=== PATIENT | female | born 1965 ===

== ENCOUNTER 2020-12-16 08:11 | Outpatient (REF) | payer BC, SELFPAY ==
[2020-12-16 14:33] LABS: ALT 35 U/L (14-59); AST 19 U/L (15-37); Albumin 3.7 g/dL (3.4-5.0); Alkaline Phosphatase 62 U/L (46-116); Anion Gap 9.5 mmol/L (3-11); BUN 19 mg/dL (7-18); Bilirubin, Total 0.4 mg/dL (0.2-1.0); CO2 28.5 mmol/L (21.0-32.0); CREATININE 0.8 mg/dL (0.55-1.02); Calcium 8.8 mg/dL (8.5-10.1); Calculated LDL 130 mg/dL (<100); Chloride 105 mmol/L (98-107); Cholesterol 212 mg/dL (<200); Glucose 140 mg/dL (74-106); HDL Cholesterol 61 mg/dL (40-60); Potassium 4.1 mmol/L (3.5-5.1); Sodium 143 mmol/L (136-145); Total Protein 7.2 g/dL (6.4-8.2); Triglyceride 108 mg/dL (<150)
== END 2020-12-16 08:12 | disposition home or self-care (01) ==
LOC: NCHCN 08:11
PROVIDERS: PCP Family Medicine; Visit Provider Internal Medicine
DX: R73.9 Hyperglycemia, unspecified (principal); E66.9 Obesity, unspecified
CPT/HCPCS: 80053; 80061; 83036

== ENCOUNTER 2021-07-23 16:12 | Outpatient (REF) | payer BC, SELFPAY ==
[2021-07-23 15:11] LABS: Calculated LDL 93 mg/dL (<100); Cholesterol 174 mg/dL (<200); HDL Cholesterol 66 mg/dL (40-60); Triglyceride 79 mg/dL (<150)
[2021-07-23 15:14] LABS: Hemoglobin A1C 6.9 % (<5.7)
[2021-07-23 15:59] LABS: COMMENT (LAB VIEW ONLY) 89.15 mg/dL
[2021-07-23 16:04] LABS: Microalb ug/mg Crea 9.6 ug/mg Cr
== END 2021-07-23 16:13 | disposition home or self-care (01) ==
LOC: NCHCN 16:12
PROVIDERS: PCP Family Medicine; Visit Provider Internal Medicine
DX: E11.9 Type 2 diabetes mellitus without complications (principal); E78.5 Hyperlipidemia, unspecified
CPT/HCPCS: 80061; 82043; 82570; 83036

== ENCOUNTER 2021-11-18 18:38 | Outpatient (REF) | payer BC, SELFPAY ==
[2021-11-18 14:57] LABS: ALT 20 U/L (14-59); AST 14 U/L (15-37); Alkaline Phosphatase 70 U/L (46-116); Anion Gap 8.2 mmol/L (3-11); BUN 17 mg/dL (7-18); Bilirubin, Total 0.3 mg/dL (0.2-1.0); CO2 27.8 mmol/L (21.0-32.0); CREATININE 0.8 mg/dL (0.55-1.02); Calcium 8.9 mg/dL (8.5-10.1); Chloride 107 mmol/L (98-107); Glucose 122 mg/dL (74-106); Lipase 72 U/L (73-393); Potassium 5.2 mmol/L (3.5-5.1); Sodium 143 mmol/L (136-145); Total Protein 7.6 g/dL (6.4-8.2)
[2021-11-18 15:03] LABS: Abs Immature Grans 0.02 10^3/uL (0.0-0.06); Absolute Basophil Count 0.09 10^3/uL (0.0-0.2); Absolute Eosinophil Count 0.24 10^3/uL (0.0-0.7); Absolute Lymphocyte Count 2.71 10^3/uL (1.2-3.4); Absolute Monocyte Count 0.53 10^3/uL (0.1-0.8); Absolute Neutrophil Count 4.11 10^3/uL (1.2-6.7); Basophils % 1.2; Eosinophils % 3.1; HCT 40.8 % (36.0-46.0); HGB 12.7 g/dL (11.2-15.7); Immature Grans % 0.3; Lymphocytes % 35.2; MCH 26.9 pg (27.0-33.0); MCHC 31.1 % (32.0-36.0); MCV 86.4 fL (80-95); MPV 9.8 fL (8.0-11.0); Monocytes % 6.9; Neutrophils % 53.3; Nucleated RBC 0 %; Platelet Count 411 10^3/uL (130-400); RBC 4.72 10^6/uL (3.93-5.22); RDW 13.7 % (11.7-14.6); RDW-SD 42.9 fL
== END 2021-11-18 18:39 | disposition home or self-care (01) ==
LOC: NCHCN 18:38
PROVIDERS: PCP Family Medicine; Visit Provider Nurse Practitioner Family
DX: R10.12 Left upper quadrant pain (principal)
CPT/HCPCS: 80053; 83690; 85025

== ENCOUNTER 2022-04-03 13:09 | Outpatient (REF) | payer BC, SELFPAY ==
--- NOTE | 2022-04-03 08:45 | PAPFT_PTH ---
PATIENT: Lisa Mercado LOC: [facility] U#:[id number] AGE/SX: 56/F ROOM: RE04/03/[address]: Tisha Wang : 1965 BED: DIS: 04/03/2022 SPEC #: [id number] RECD: 04/03/22 17:27 STATUS: KAREN SEAMAN #: [id number] MONICA: 04/03/22 08:[address]: Tisha Wang DEPT: [facility] Cytology RECD BY: Criss Gonzalez ENTERED: 04/03/22 17:27 SP TYPE: PAPFT OTHR DR: Brad Haider Tissues: 1 - CX/ENDOCX FOR PAP SMEARS Procedures: PAP THIN PREP/UVM Screening HPV DNA PROBE Comments: [id number] (CHLAMYDIA/GC)
[2022-04-06 14:53] LABS: Chlamydia Result Negative (Negative); GC Result Negative (Negative)
== END 2022-04-03 13:10 | disposition home or self-care (01) ==
LOC: NCHCN 13:09
PROVIDERS: PCP Family Medicine; Visit Provider Nurse Practitioner Family
DX: Z12.4 Encounter for screening for malignant neoplasm of cervix (principal); Z11.51 Encounter for screening for human papillomavirus (HPV)
CPT/HCPCS: 87491; 87591; 88142; 87624

== ENCOUNTER 2023-04-05 20:56 | Outpatient (REF) | payer BC, SELFPAY ==
[2023-04-05 22:05] LABS: COMMENT (LAB VIEW ONLY) 40.55 mg/dL
[2023-04-05 22:06] LABS: Microalb ug/mg Crea 496.4 ug/mg Cr
== END 2023-04-05 20:57 | disposition home or self-care (01) ==
LOC: NCHCN 20:56
PROVIDERS: PCP Family Medicine; Visit Provider Internal Medicine
DX: E11.9 Type 2 diabetes mellitus without complications (principal)
CPT/HCPCS: 82043; 82570

== ENCOUNTER 2023-11-12 14:58 | Outpatient (REF) | payer BC, SELFPAY ==
[2023-11-12 14:28] LABS: HCT 41.9 % (36.0-46.0); HGB 13.7 g/dL (11.2-15.7); MCHC 32.7 % (32.0-36.0); MCV 83 fL (80-95); MPV 9.5 fL (8.0-11.0); Platelet Count 426 10^3/uL (130-400); RBC 5.08 10^6/uL (3.93-5.22); RDW 13.9 % (11.7-14.6); RDW-SD 41.5 fL; WBC 6.44 10^3/uL (4.4-10.8)
[2023-11-12 14:40] LABS: Anion Gap 10.2 mmol/L (3-11); BUN 16 mg/dL (7-18); CO2 26.8 mmol/L (21.0-32.0); CREATININE 0.9 mg/dL (0.55-1.02); Calculated LDL 86 mg/dL (<100); Chloride 103 mmol/L (98-107); Cholesterol 169 mg/dL (<200); Estimated GFR 73.64 (mL/min/1.73m2); Glucose 136 mg/dL (74-106); HDL Cholesterol 59 mg/dL (40-60); Potassium 4.8 mmol/L (3.5-5.1); Sodium 140 mmol/L (136-145); Triglyceride 121 mg/dL (<150)
[2023-11-12 14:50] LABS: Hemoglobin A1C 6.3 % (<5.7)
== END 2023-11-12 14:59 | disposition home or self-care (01) ==
LOC: NCHCN 14:58
PROVIDERS: PCP Family Medicine; Referring Provider Nurse Practitioner Family; Visit Provider Nurse Practitioner Family
DX: E11.9 Type 2 diabetes mellitus without complications (principal)
CPT/HCPCS: 80048; 80061; 85027; 83036

== ENCOUNTER 2024-02-22 15:23 | Outpatient (REF) | payer BC, SELFPAY ==
--- OUTSIDE RECORDS SUMMARY | 2024-02-22 15:26 | XMS_ITS ---
Author Name Unknown Address [address] [place] [address] [phone] Phone Organization Unknown Address [address] [place] [address] [phone] Phone Care Team Providers Care Physics And Astronomy Professor Name Role Phone GREGORY Eli Attending Unavailable ROMULO Guaman Primary Unavailable Results BUN/CREATININE RATIO FOR RAD IOLOGY* - Collect Date/Time: 12/03/2021 10:10 [facility] ID: [id number] [address] [place] [address], 5661 LOINC: 3097-3 Test Value Unit Reference Range Code Code System Flag BUN 6 mg/dL L=6 H=25 3094-0 LOINC CREATININE 0.83 mg/dL L=0.51 H=0.95 2160-0 LOINC BUN/CREATININE RATIO 7.2 3097-3 LOINC AGE 56 years eGFR (non-Afr.Amer) 71 mL/min 10983-2 LOINC eGFR (Afr-Azerbaijani) 86 mL/min 05692-[address] ABD + PELV W CONTRAST - C ompleted: 12/03/2021 10:04 LOINC: Radiation optimization: All CT scans at this facility use at least one of these dose optimization techniques: automated exposure control; mA and/or kV adjustment per patient size (includes targeted exams where dose is matched to clinical indication); or iterative reconstruction. CT SCAN OF THE ABDOMEN AND PELVIS:CT scan of the abdomen and pelvis was performed following the uneventful administration of intravenous and oral contrast material. Comparison CT scan is 11/12/09. The lung bases are clear. There is no evidence of a hepatic mass. The portal, superior mesenteric and splenic veins are patent. The patient is s/p cholecystectomy. There is no biliary ductal dilatation. The pancreas, spleen and adrenal glands are unremarkable. The kidneys and ureters are unremarkable. The patient has a reconstructed urinary bladder which is unremarkable. It is incompletely distended limiting evaluation. The reproductive organs are unremarkable. The abdominal aorta is of normal caliber. No significant abdominal or pelvic adenopathy, ascites or pneumoperitoneum is present. The bowel shows no evidence of obstruction or inflammation. The soft tissues are unremarkable. No acute osseous abnormality is identified. IMPRESSION:No acute abdominal or pelvic process. Dictated by: LILLIANA EDWARD MD Transcribed by: DERRICK 12/03/21/13:20 D Friday, December 03, 2021 11:46:34 AM [id number] Electronically Reviewed and Signed By: CARMEN EDWARD MD 12/03/21 14:47 Copy for: GREGORY Eli via fax Copy for: ROMULO Guaman via fax Copy for: 185 HEALTH INFORMATION MGMT Social History Type Status Start Date End Date Code Code Syst em Smoking History Never smoker (Never Smoked) 473102838 SNOMED CT Sex Female Medications Medication Start Date End Date Route Frequency Dose Code Code System Medication Instructions Home Meds Acetaminophen 325MG Oral Tablet 10/21/2022 Unknown ORAL NEEDED EVERY 4 HOURS 650 MILLIGRAMS 226027 RxNorm TAKE 650 MILLIGRAMS ORAL NEEDED EVERY 4 HOURS Atorvastatin Calcium 20MG Oral Tablet 10/21/2022 Unknown ORAL BEDTIME 20 MILLIGRAMS 624281 RxNorm TAKE 20 MILLIGRAMS ORAL BEDTIME Omeprazole 20 MG Oral Tablet Disintegrating, Delayed Release 10/21/2022 Unknown ORAL DAILY 20 MG 7818625 RxNorm TAKE 20 MG ORAL DAILY metFORMIN HCl 500MG Oral Tablet 10/21/2022 Unknown ORAL TWICE A DAY WITH FOOD 500 MILLIGRAMS 632073 RxNorm TAKE 500 MILLIGRAMS ORAL TWICE A DAY WITH FOOD Cephalexin 500MG Oral Tablet 10/21/2022 Unknown ORAL FOUR TIMES A DAY 1 TABLET 889739 RxNorm TAKE 1 TABLET ORAL FOUR TIMES A DAY Assessment You had the following problems:PYELONEPHRITISHISTORY OF TOTAL CYSTECTOMYTYPE 2 DIABETES Hospital Discharge Instructions Should you have any questions prior to discharge, please contact a member of your healthcare team. If you have left the hospital and have any questions, please contact your primary care physician. Reason For Referral No Data Found Problems Problem Start Date Resolved Date Status Code Code System PYELONEPHRITIS active 40965669 SNOME D-CT HISTORY OF TOTAL CYSTECTOMY active 44 4417014 SNOMED-CT TYPE 2 DIABETES active 79373135 SNOM ED-CT DIABETES 2 10/19/2022 resolved 52063183 SNOMED-C T ULCER 10/19/2022 resolved 634036603 SNOMED-CT URINARY DIVERSTION 10/19/2022 resolved SNOMED-CT INTERNAL BLADDER 10/19/2022 resolved SN OMED-CT Allergies and Adverse Reactions Allergy Substance Reaction Severity Start Date Concern Status Code Code System SULFA (sulfonamide) Anaphylaxis (SNOMED-CT: 22174596) Active 44444761 SNOMED-CT Plan of Treatment MM SCREEN BILAT 02/17/2024 LAB DRAW 15MIN 12/03/2021 CT ABDOMEN/PELVIS W/ CONTRAST X-RAY 11/25/2021 X-RAY 11/19/2021 Encounters Encounter Diagnosis Start Date Code Code Sys tem Retention of urine 12/03/2021 632692354 SNOMED-CT Personal Care Team Section Performer Name Performer Role Active Date Inactive Da te
--- OUTSIDE RECORDS SUMMARY | 2024-02-22 15:26 | XMS_ITS ---
Author Name Unknown Address [address] [place] [address] [phone] Phone Organization Unknown Address [address] [place] [address] [phone] Phone Care Team Providers Care Buzzle Buffer Name Role Phone JERILYN Carey Attending Unavailable Social History Type Status Start Date End Date Code Code Syst em Smoking History Never smoker (Never Smoked) 943659960 SNOMED CT Sex Female Medications Medication Start Date End Date Route Frequency Dose Code Code System Medication Instructions Home Meds Acetaminophen 325MG Oral Tablet 10/21/2022 Unknown ORAL NEEDED EVERY 4 HOURS 650 MILLIGRAMS 843718 RxNorm TAKE 650 MILLIGRAMS ORAL NEEDED EVERY 4 HOURS Atorvastatin Calcium 20MG Oral Tablet 10/21/2022 Unknown ORAL BEDTIME 20 MILLIGRAMS 019721 RxNorm TAKE 20 MILLIGRAMS ORAL BEDTIME Omeprazole 20 MG Oral Tablet Disintegrating, Delayed Release 10/21/2022 Unknown ORAL DAILY 20 MG 3846433 RxNorm TAKE 20 MG ORAL DAILY metFORMIN HCl 500MG Oral Tablet 10/21/2022 Unknown ORAL TWICE A DAY WITH FOOD 500 MILLIGRAMS 913359 RxNorm TAKE 500 MILLIGRAMS ORAL TWICE A DAY WITH FOOD Cephalexin 500MG Oral Tablet 10/21/2022 Unknown ORAL FOUR TIMES A DAY 1 TABLET 513649 RxNorm TAKE 1 TABLET ORAL FOUR TIMES A DAY Assessment You had the following problems:PYELONEPHRITISHISTORY OF TOTAL CYSTECTOMYTYPE 2 DIABETES Hospital Discharge Instructions Should you have any questions prior to discharge, please contact a member of your healthcare team. If you have left the hospital and have any questions, please contact your primary care physician. Reason For Referral No Data Found Procedures Procedure Name Date Status Code Code Syste m ECG, Transthoracic, Real-Luis e 2D Image, M-Mode Recording, Complete, With Doppler Echocardiography 11/10/2021 completed 46077 CPT Problems Problem Start Date Resolved Date Status Code Code System PYELONEPHRITIS active 82834875 SNOME D-CT HISTORY OF TOTAL CYSTECTOMY active 44 6237014 SNOMED-CT TYPE 2 DIABETES active 97352113 SNOM ED-CT DIABETES 2 10/19/2022 resolved 96155444 SNOMED-C T ULCER 10/19/2022 resolved 063421931 SNOMED-CT URINARY DIVERSTION 10/19/2022 resolved SNOMED-CT INTERNAL BLADDER 10/19/2022 resolved SN OMED-CT Allergies and Adverse Reactions Allergy Substance Reaction Severity Start Date Concern Status Code Code System SULFA (sulfonamide) Anaphylaxis (SNOMED-CT: 86018972) Active 71369111 SNOMED-CT Plan of Treatment MM SCREEN BILAT 02/17/2024 LAB DRAW 15MIN 12/03/2021 CT ABDOMEN/PELVIS W/ CONTRAST X-RAY 11/25/2021 X-RAY 11/19/2021 Encounters Encounter Diagnosis Start Date Code Code Sys tem Nonrheumatic mitral (valve) insufficiency 11/10/2021 SNOMED-CT Personal Care Team Section Performer Name Performer Role Active Date Inactive Da te
--- OUTSIDE RECORDS SUMMARY | 2024-02-22 15:26 | XMS_ITS ---
Author Name Unknown Address [address] [place] [address] [phone] Phone Organization Unknown Address [address] [place] [address] [phone] Phone Care Team Providers Care Baggage Agent Supervisor Name Role Phone ROMULO Guaman Attending Unavailable Results XR EXAM ABDOMEN 1 VIEW - Com pleted: 11/26/2021 18:43 LOINC: KUB, 3 VIEWS: Comparison CT scan is 11/12/2009. The visualized lung bases are clear. There is no evidence of bowel obstruction. There is a moderate amount of stool throughout the colon. No obvious pneumoperitoneum is seen. There are surgical clips in the right lower quadrant of the abdomen and the right pelvis. No acute bone or joint abnormality is identified. IMPRESSION: No acute abdominal process. Dictated by: LILLIANA EDWARD MD Transcribed by: DIONNE 11/26/21/16:18 [id number] Electronically Reviewed and Signed By: CARMEN EDWARD MD 11/27/21 21:08 Copy for: ROMULO Guaman via fax Copy for: [facility] HEALTH INFORMATION MGMT Social History Type Status Start Date End Date Code Code Syst em Smoking History Never smoker (Never Smoked) 547149488 SNOMED CT Sex Female Medications Medication Start Date End Date Route Frequency Dose Code Code System Medication Instructions Home Meds Acetaminophen 325MG Oral Tablet 10/21/2022 Unknown ORAL NEEDED EVERY 4 HOURS 650 MILLIGRAMS 198301 RxNorm TAKE 650 MILLIGRAMS ORAL NEEDED EVERY 4 HOURS Atorvastatin Calcium 20MG Oral Tablet 10/21/2022 Unknown ORAL BEDTIME 20 MILLIGRAMS 168803 RxNorm TAKE 20 MILLIGRAMS ORAL BEDTIME Omeprazole 20 MG Oral Tablet Disintegrating, Delayed Release 10/21/2022 Unknown ORAL DAILY 20 MG 8058778 RxNorm TAKE 20 MG ORAL DAILY metFORMIN HCl 500MG Oral Tablet 10/21/2022 Unknown ORAL TWICE A DAY WITH FOOD 500 MILLIGRAMS 406159 RxNorm TAKE 500 MILLIGRAMS ORAL TWICE A DAY WITH FOOD Cephalexin 500MG Oral Tablet 10/21/2022 Unknown ORAL FOUR TIMES A DAY 1 TABLET 116188 RxNorm TAKE 1 TABLET ORAL FOUR TIMES [...] Date Status Code Code System PYELONEPHRITIS active 97812730 SNOME D-CT HISTORY OF TOTAL CYSTECTOMY active 44 1141514 SNOMED-CT TYPE 2 DIABETES active 19263594 SNOM ED-CT DIABETES 2 10/19/2022 resolved 37219450 SNOMED-C T ULCER 10/19/2022 resolved 262400281 SNOMED-CT URINARY DIVERSTION 10/19/2022 resolved SNOMED-CT INTERNAL BLADDER 10/19/2022 resolved SN OMED-CT Allergies and Adverse Reactions Allergy Substance Reaction Severity Start Date Concern Status Code Code System SULFA (sulfonamide) Anaphylaxis (SNOMED-CT: 80073520) Active 67292949 SNOMED-CT Plan of Treatment MM SCREEN BILAT 02/17/2024 LAB DRAW 15MIN 12/03/2021 CT ABDOMEN/PELVIS W/ CONTRAST X-RAY 11/25/2021 X-RAY 11/19/2021 Encounters Encounter Diagnosis Start Date Code Code Sys tem Left upper quadrant pain 11/26/2021 141974829 SNO MED-CT Personal Care Team Section Performer Name Performer Role Active Date Inactive Da te
--- OUTSIDE RECORDS SUMMARY | 2024-02-22 15:27 | XMS_ITS ---
Author Name Unknown Address [address] [place] [address] [phone] Phone Organization Unknown Address [address] [place] [address] [phone] Phone Care Team Providers Care Right Of Way Man Name Role Phone MARY Han Attending Unavailable Social History Type Status Start Date End Date Code Code Syst em Smoking History Never smoker (Never Smoked) 253487291 SNOMED CT Sex Female Medications Medication Start Date End Date Route Frequency Dose Code Code System Medication Instructions Home Meds Acetaminophen 325MG Oral Tablet 10/21/2022 Unknown ORAL NEEDED EVERY 4 HOURS 650 MILLIGRAMS 863019 RxNorm TAKE 650 MILLIGRAMS ORAL NEEDED EVERY 4 HOURS Atorvastatin Calcium 20MG Oral Tablet 10/21/2022 Unknown ORAL BEDTIME 20 MILLIGRAMS 097714 RxNorm TAKE 20 MILLIGRAMS ORAL BEDTIME Omeprazole 20 MG Oral Tablet Disintegrating, Delayed Release 10/21/2022 Unknown ORAL DAILY 20 MG 2798603 RxNorm TAKE 20 MG ORAL DAILY metFORMIN HCl 500MG Oral Tablet 10/21/2022 Unknown ORAL TWICE A DAY WITH FOOD 500 MILLIGRAMS 617379 RxNorm TAKE 500 MILLIGRAMS ORAL TWICE A DAY WITH FOOD Cephalexin 500MG Oral Tablet 10/21/2022 Unknown ORAL FOUR TIMES A DAY 1 TABLET 680608 RxNorm TAKE 1 TABLET ORAL FOUR TIMES [...] Date Status Code Code System PYELONEPHRITIS active 25931899 SNOME D-CT HISTORY OF TOTAL CYSTECTOMY active 44 5860000 SNOMED-CT TYPE 2 DIABETES active 19067691 SNOM ED-CT DIABETES 2 10/19/2022 resolved 41369686 SNOMED-C T ULCER 10/19/2022 resolved 234692743 SNOMED-CT URINARY DIVERSTION 10/19/2022 resolved SNOMED-CT INTERNAL BLADDER 10/19/2022 resolved SN OMED-CT Allergies and Adverse Reactions Allergy Substance Reaction Severity Start Date Concern Status Code Code System SULFA (sulfonamide) Anaphylaxis (SNOMED-CT: 15061303) Active 89981224 SNOMED-CT Plan of Treatment MM SCREEN BILAT 02/17/2024 LAB DRAW 15MIN 12/03/2021 CT ABDOMEN/PELVIS W/ CONTRAST X-RAY 11/25/2021 X-RAY 11/19/2021 Encounters Encounter Diagnosis Start Date Code Code Sys tem Tubulo-interstitial nephriti s, not specified as acute or chronic 10/19/2022 SNOMED-CT Personal Care Team Section Performer Name Performer Role Active Date Inactive Nasir hinojosa
--- OUTSIDE RECORDS SUMMARY | 2024-02-22 15:27 | XMS_ITS ---
Author Name Unknown Address [address] [place] [address] [phone] Phone Organization Unknown Address [address] [place] [address] [phone] Phone Care Team Providers Care Employment Educational Coord Name Role Phone GREGORY Eli Attending Unavailable ROMULO Guaman Primary Unavailable Results CULT URINE CULTURE* - Virgilio wu Date/Time: 03/16/2023 15:59 [facility] ID: [id number] [address] [place], [place], [id number] LOINC: 630-4 Test Value Unit Reference Range Code Code System Flag COLLECTION MODE: NOT STATED 47121-9 LOINC Social History Type Status Start Date End Date Code Code Syst em Smoking History Never smoker (Never Smoked) 220788408 SNOMED CT Sex Female Medications Medication Start Date End Date Route Frequency Dose Code Code System Medication Instructions Home Meds Acetaminophen 325MG Oral Tablet 10/21/2022 Unknown ORAL NEEDED EVERY 4 HOURS 650 MILLIGRAMS 872725 RxNorm TAKE 650 MILLIGRAMS ORAL NEEDED EVERY 4 HOURS Atorvastatin Calcium 20MG Oral Tablet 10/21/2022 Unknown ORAL BEDTIME 20 MILLIGRAMS 411811 RxNorm TAKE 20 MILLIGRAMS ORAL BEDTIME Omeprazole 20 MG Oral Tablet Disintegrating, Delayed Release 10/21/2022 Unknown ORAL DAILY 20 MG 0806620 RxNorm TAKE 20 MG ORAL DAILY metFORMIN HCl 500MG Oral Tablet 10/21/2022 Unknown ORAL TWICE A DAY WITH FOOD 500 MILLIGRAMS 822630 RxNorm TAKE 500 MILLIGRAMS ORAL TWICE A DAY WITH FOOD Cephalexin 500MG Oral Tablet 10/21/2022 Unknown ORAL FOUR TIMES A DAY 1 TABLET 761512 RxNorm TAKE 1 TABLET ORAL FOUR TIMES [...] Date Status Code Code System PYELONEPHRITIS active 45934219 SNOME D-CT HISTORY OF TOTAL CYSTECTOMY active 44 0504257 SNOMED-CT TYPE 2 DIABETES active 85127750 SNOM ED-CT DIABETES 2 10/19/2022 resolved 53587684 SNOMED-C T ULCER 10/19/2022 resolved 702179528 SNOMED-CT URINARY DIVERSTION 10/19/2022 resolved SNOMED-CT INTERNAL BLADDER 10/19/2022 resolved SN OMED-CT Allergies and Adverse Reactions Allergy Substance Reaction Severity Start Date Concern Status Code Code System SULFA (sulfonamide) Anaphylaxis (SNOMED-CT: 72840926) Active 01687770 SNOMED-CT Plan of Treatment MM SCREEN BILAT 02/17/2024 LAB DRAW 15MIN 12/03/2021 CT ABDOMEN/PELVIS W/ CONTRAST X-RAY 11/25/2021 X-RAY 11/19/2021 Encounters Encounter Diagnosis Start Date Code Code Sys tem Dysuria 03/16/2023 80894676 SNOMED-CT Personal Care Team Section Performer Name Performer Role Active Date Inactive Da te
--- OUTSIDE RECORDS SUMMARY | 2024-02-22 15:28 | XMS_ITS ---
Author Name Unknown Address [address] [place] [address] [phone] Phone Organization Unknown Address [address] [place] [address] [phone] Phone Care Team Providers Care Instrumentation Designer Name Role Phone JERILYN Carey MD Attending Unavailable [facility] Primary Unavailable Social History Type Status Start Date End Date Code Code Syst em Smoking History Never smoker (Never Smoked) 887079030 SNOMED CT Sex Female Medications Medication Start Date End Date Route Frequency Dose Code Code System Medication Instructions Home Meds Acetaminophen 325MG Oral Tablet 10/21/2022 Unknown ORAL NEEDED EVERY 4 HOURS 650 MILLIGRAMS 699132 RxNorm TAKE 650 MILLIGRAMS ORAL NEEDED EVERY 4 HOURS Atorvastatin Calcium 20MG Oral Tablet 10/21/2022 Unknown ORAL BEDTIME 20 MILLIGRAMS 367057 RxNorm TAKE 20 MILLIGRAMS ORAL BEDTIME Omeprazole 20 MG Oral Tablet Disintegrating, Delayed Release 10/21/2022 Unknown ORAL DAILY 20 MG 0694110 RxNorm TAKE 20 MG ORAL DAILY metFORMIN HCl 500MG Oral Tablet 10/21/2022 Unknown ORAL TWICE A DAY WITH FOOD 500 MILLIGRAMS 508203 RxNorm TAKE 500 MILLIGRAMS ORAL TWICE A DAY WITH FOOD Cephalexin 500MG Oral Tablet 10/21/2022 Unknown ORAL FOUR TIMES A DAY 1 TABLET 394074 RxNorm TAKE 1 TABLET ORAL FOUR TIMES [...] Date Status Code Code System PYELONEPHRITIS active 77487756 SNOME D-CT HISTORY OF TOTAL CYSTECTOMY active 44 1104918 SNOMED-CT TYPE 2 DIABETES active 75582445 SNOM ED-CT DIABETES 2 10/19/2022 resolved 74084915 SNOMED-C T ULCER 10/19/2022 resolved 825037839 SNOMED-CT URINARY DIVERSTION 10/19/2022 resolved SNOMED-CT INTERNAL BLADDER 10/19/2022 resolved SN OMED-CT Allergies and Adverse Reactions Allergy Substance Reaction Severity Start Date Concern Status Code Code System SULFA (sulfonamide) Anaphylaxis (SNOMED-CT: 66636670) Active 70713531 SNOMED-CT Plan of Treatment MM SCREEN BILAT 02/17/2024 LAB DRAW 15MIN 12/03/2021 CT ABDOMEN/PELVIS W/ CONTRAST X-RAY 11/25/2021 X-RAY 11/19/2021 Encounters Encounter Diagnosis Start Date Code Code Sys tem Palpitations 04/01/2021 SNOMED-CT Personal Care Team Section Performer Name Performer Role Active Date Inactive Da te
--- OUTSIDE RECORDS SUMMARY | 2024-02-22 15:28 | XMS_ITS ---
Author Name Unknown Address [address] [place] [address] [phone] Phone Organization Unknown Address [address] [place] [address] [phone] Phone Care Team Providers Care Burnishing Machine Operator Name Role Phone SHIRLEY Han Attending Unavailable ROMULO Guaman Primary Unavailable Results *MM SCREENING DYLAN 12698 - Co mpleted: 02/17/2024 15:58 LOINC: [place], [place] [id number] [place] [address] METHODS ENGINEER REPORT Patient Name: RONALD CAIN MRN: Sex: : Age: [id number] F 1965 [id number] Account: Accession: Admit: StayType: [id number] 02/17/2024 O Ordered: Order ID: Submitted: Ordering Provider: 02/17/2024 15:19 [id number] REBECCA SALES Completed: Technologist: Resulted: 02/17/2024 15:43 [facility] 02/17/2024 18:42 FINAL REPORT EXAM: MM SCREENING BILAT MAMMO W REINALDO W CAD CLINICAL HISTORY: . TECHNIQUE: Bilateral full field digital CC and MLO mammographic images were obtained with 3D tomosynthesis and utilizing computer aided detection (CAD). COMPARISON: Prior mammograms were reviewed. FINDINGS: There has been no significant change in the appearance and distribution of the fibroglandular tissue. There are no new spiculated masses nor malignant appearing microcalcification groups. There is no significant architectural distortion nor skin thickening-retraction. IMPRESSION: No radiographic evidence of malignancy. BI-RADS Category 1 - Negative Breast Density - Category B - Scattered areas of fibroglandular density Breast density Category C or D implies that the patient has dense breast tissue. Dense breast tissue can make it harder to find cancer on a mammogram. Dense breast tissue is also associated with an increased risk of breast cancer. This information about the result of the mammogram report was provided to the patient to raise their awareness. Use this report when you speak with the patient about their risks for breast cancer, which includes their family history. At that time, you may recommend additional screening tests (Ultrasound or MRI) as these tests may add significant information. A negative radiographic report should not delay biopsy if a dominant or clinically suspicious mass is present. Up to ten percent of cancers are not identified on mammography. A negative report may reinforce clinical impression. Adenosis and dense breasts may obscure an underlying neoplasm. False positive reports average 6 to 10%. Patient will receive a letter notifying them of these results. Electronically signed by: Adrian Grier Dictated: 02/17/2024 18:42 Social History Type Status Start Date End Date Code Code Syst em Smoking History Never smoker (Never Smoked) 619366020 SNOMED CT Sex Female Medications Medication Start Date End Date Route Frequency Dose Code Code System Medication Instructions Home Meds Acetaminophen 325MG Oral Tablet 10/21/2022 Unknown ORAL NEEDED EVERY 4 HOURS 650 MILLIGRAMS 225620 RxNorm TAKE 650 MILLIGRAMS ORAL NEEDED EVERY 4 HOURS Atorvastatin Calcium 20MG Oral Tablet 10/21/2022 Unknown ORAL BEDTIME 20 MILLIGRAMS 320373 RxNorm TAKE 20 MILLIGRAMS ORAL BEDTIME Omeprazole 20 MG Oral Tablet Disintegrating, Delayed Release 10/21/2022 Unknown ORAL DAILY 20 MG 2142439 RxNorm TAKE 20 MG ORAL DAILY metFORMIN HCl 500MG Oral Tablet 10/21/2022 Unknown ORAL TWICE A DAY WITH FOOD 500 MILLIGRAMS 079822 RxNorm TAKE 500 MILLIGRAMS ORAL TWICE A DAY WITH FOOD Cephalexin 500MG Oral Tablet 10/21/2022 Unknown ORAL FOUR TIMES A DAY 1 TABLET 450073 RxNorm TAKE 1 TABLET ORAL FOUR TIMES [...] Date Status Code Code System PYELONEPHRITIS active 69714641 SNOME D-CT HISTORY OF TOTAL CYSTECTOMY active 44 5169078 SNOMED-CT TYPE 2 DIABETES active 36960456 SNOM ED-CT DIABETES 2 10/19/2022 resolved 61261496 SNOMED-C T ULCER 10/19/2022 resolved 351184395 SNOMED-CT URINARY DIVERSTION 10/19/2022 resolved SNOMED-CT INTERNAL BLADDER 10/19/2022 resolved SN OMED-CT Allergies and Adverse Reactions Allergy Substance Reaction Severity Start Date Concern Status Code Code System SULFA (sulfonamide) Anaphylaxis (SNOMED-CT: 54097939) Active 05483361 SNOMED-CT Plan of Treatment MM SCREEN BILAT 02/17/2024 LAB DRAW 15MIN 12/03/2021 CT ABDOMEN/PELVIS W/ CONTRAST X-RAY 11/25/2021 X-RAY 11/19/2021 Encounters Encounter Diagnosis Start Date Code Code Sys tem Screening mammography 02/17/2024 52506200 SNOMED -CT Personal Care Team Section Performer Name Performer Role Active Date Inactive Da te
[2024-02-22 16:13] LABS: COMMENT (LAB VIEW ONLY) 26.46 mg/dL; Microalb ug/mg Crea 11.3 ug/mg Cr
== END 2024-02-22 15:24 | disposition home or self-care (01) ==
LOC: NCHCN 15:23
PROVIDERS: PCP Family Medicine; Visit Provider Nurse Practitioner Family
DX: E11.9 Type 2 diabetes mellitus without complications (principal)
CPT/HCPCS: 82043; 82570

== ENCOUNTER 2024-03-06 16:13 | Outpatient (REF) | payer BC, SELFPAY ==
--- OUTSIDE RECORDS SUMMARY | 2024-03-06 16:15 | XMS_ITS ---
Author Name Unknown Address [address] [place] [address] [phone] Phone Organization Unknown Address [address] [place] [address] [phone] Phone Care Team Providers Care Rn Clinician Name Role Phone JERILYN Carey Attending Unavailable Social History Type Status Start Date End Date Code Code Syst em Smoking History Never smoker (Never Smoked) 742962623 SNOMED CT Sex Female Medications Medication Start Date End Date Route Frequency Dose Code Code System Medication Instructions Home Meds Acetaminophen 325MG Oral Tablet 10/21/2022 Unknown ORAL NEEDED EVERY 4 HOURS 650 MILLIGRAMS 357077 RxNorm TAKE 650 MILLIGRAMS ORAL NEEDED EVERY 4 HOURS Atorvastatin Calcium 20MG Oral Tablet 10/21/2022 Unknown ORAL BEDTIME 20 MILLIGRAMS 116666 RxNorm TAKE 20 MILLIGRAMS ORAL BEDTIME Omeprazole 20 MG Oral Tablet Disintegrating, Delayed Release 10/21/2022 Unknown ORAL DAILY 20 MG 5857235 RxNorm TAKE 20 MG ORAL DAILY metFORMIN HCl 500MG Oral Tablet 10/21/2022 Unknown ORAL TWICE A DAY WITH FOOD 500 MILLIGRAMS 000605 RxNorm TAKE 500 MILLIGRAMS ORAL TWICE A DAY WITH FOOD Cephalexin 500MG Oral Tablet 10/21/2022 Unknown ORAL FOUR TIMES A DAY 1 TABLET 240985 RxNorm TAKE 1 TABLET ORAL FOUR TIMES [...] Recording, Complete, With Doppler Echocardiography 11/10/2021 completed 54899 CPT Problems Problem Start Date Resolved Date Status Code Code System PYELONEPHRITIS active 93521901 SNOME D-CT HISTORY OF TOTAL CYSTECTOMY active 44 3807929 SNOMED-CT TYPE 2 DIABETES active 67850604 SNOM ED-CT DIABETES 2 10/19/2022 resolved 51550889 SNOMED-C T ULCER 10/19/2022 resolved 559493099 SNOMED-CT URINARY DIVERSTION 10/19/2022 resolved SNOMED-CT INTERNAL BLADDER 10/19/2022 resolved SN OMED-CT Allergies and Adverse Reactions Allergy Substance Reaction Severity Start Date Concern Status Code Code System SULFA (sulfonamide) Anaphylaxis (SNOMED-CT: 59047746) Active 56216928 SNOMED-CT Plan of Treatment MM SCREEN BILAT 02/17/2024 LAB DRAW 15MIN 12/03/2021 CT ABDOMEN/PELVIS W/ CONTRAST X-RAY 11/25/2021 X-RAY 11/19/2021 Encounters Encounter Diagnosis Start Date Code Code Sys tem Nonrheumatic mitral (valve) insufficiency 11/10/2021 SNOMED-CT Personal Care Team Section Performer Name Performer Role Active Date Inactive Da te
--- OUTSIDE RECORDS SUMMARY | 2024-03-06 16:16 | XMS_ITS ---
Author Name Unknown Address [address] [place] [address] [phone] Phone Organization Unknown Address [address] [place] [address] [phone] Phone Care Team Providers Care Wafer Slicer Name Role Phone ROMULO Guaman Attending Unavailable [...] LILLIANA EDWARD MD Transcribed by: DIONNE 11/26/21/16:18 [id number] Electronically Reviewed and Signed By: CARMEN EDWARD MD 11/27/21 21:08 Copy for: ROMULO Guaman via fax Copy for: [facility] HEALTH INFORMATION MGMT Social History Type Status Start Date End Date Code Code Syst em Smoking History Never smoker (Never Smoked) 648990307 SNOMED CT Sex Female Medications Medication Start Date End Date Route Frequency Dose Code Code System Medication Instructions Home Meds Acetaminophen 325MG Oral Tablet 10/21/2022 Unknown ORAL NEEDED EVERY 4 HOURS 650 MILLIGRAMS 485880 RxNorm TAKE 650 MILLIGRAMS ORAL NEEDED EVERY 4 HOURS Atorvastatin Calcium 20MG Oral Tablet 10/21/2022 Unknown ORAL BEDTIME 20 MILLIGRAMS 585743 RxNorm TAKE 20 MILLIGRAMS ORAL BEDTIME Omeprazole 20 MG Oral Tablet Disintegrating, Delayed Release 10/21/2022 Unknown ORAL DAILY 20 MG 3808255 RxNorm TAKE 20 MG ORAL DAILY metFORMIN HCl 500MG Oral Tablet 10/21/2022 Unknown ORAL TWICE A DAY WITH FOOD 500 MILLIGRAMS 523193 RxNorm TAKE 500 MILLIGRAMS ORAL TWICE A DAY WITH FOOD Cephalexin 500MG Oral Tablet 10/21/2022 Unknown ORAL FOUR TIMES A DAY 1 TABLET 529323 RxNorm TAKE 1 TABLET ORAL FOUR TIMES [...] Date Status Code Code System PYELONEPHRITIS active 36994147 SNOME D-CT HISTORY OF TOTAL CYSTECTOMY active 44 7592601 SNOMED-CT TYPE 2 DIABETES active 98230172 SNOM ED-CT DIABETES 2 10/19/2022 resolved 70358856 SNOMED-C T ULCER 10/19/2022 resolved 058112539 SNOMED-CT URINARY DIVERSTION 10/19/2022 resolved SNOMED-CT INTERNAL BLADDER 10/19/2022 resolved SN OMED-CT Allergies and Adverse Reactions Allergy Substance Reaction Severity Start Date Concern Status Code Code System SULFA (sulfonamide) Anaphylaxis (SNOMED-CT: 15352965) Active 67169016 SNOMED-CT Plan of Treatment MM SCREEN BILAT 02/17/2024 LAB DRAW 15MIN 12/03/2021 CT ABDOMEN/PELVIS W/ CONTRAST X-RAY 11/25/2021 X-RAY 11/19/2021 Encounters Encounter Diagnosis Start Date Code Code Sys tem Left upper quadrant pain 11/26/2021 787769633 SNO MED-CT Personal Care Team Section Performer Name Performer Role Active Date Inactive Da te
--- OUTSIDE RECORDS SUMMARY | 2024-03-06 16:16 | XMS_ITS ---
Author Name Unknown Address [address] [place] [address] [phone] Phone Organization Unknown Address [address] [place] [address] [phone] Phone Care Team Providers Care Concrete Laborer Name Role Phone MARY Han Attending Unavailable Social History Type Status Start Date End Date Code Code Syst em Smoking History Never smoker (Never Smoked) 750979394 SNOMED CT Sex Female Medications Medication Start Date End Date Route Frequency Dose Code Code System Medication Instructions Home Meds Acetaminophen 325MG Oral Tablet 10/21/2022 Unknown ORAL NEEDED EVERY 4 HOURS 650 MILLIGRAMS 060438 RxNorm TAKE 650 MILLIGRAMS ORAL NEEDED EVERY 4 HOURS Atorvastatin Calcium 20MG Oral Tablet 10/21/2022 Unknown ORAL BEDTIME 20 MILLIGRAMS 387717 RxNorm TAKE 20 MILLIGRAMS ORAL BEDTIME Omeprazole 20 MG Oral Tablet Disintegrating, Delayed Release 10/21/2022 Unknown ORAL DAILY 20 MG 4453663 RxNorm TAKE 20 MG ORAL DAILY metFORMIN HCl 500MG Oral Tablet 10/21/2022 Unknown ORAL TWICE A DAY WITH FOOD 500 MILLIGRAMS 634376 RxNorm TAKE 500 MILLIGRAMS ORAL TWICE A DAY WITH FOOD Cephalexin 500MG Oral Tablet 10/21/2022 Unknown ORAL FOUR TIMES A DAY 1 TABLET 249114 RxNorm TAKE 1 TABLET ORAL FOUR TIMES [...] Date Status Code Code System PYELONEPHRITIS active 12045478 SNOME D-CT HISTORY OF TOTAL CYSTECTOMY active 44 0485129 SNOMED-CT TYPE 2 DIABETES active 69570260 SNOM ED-CT DIABETES 2 10/19/2022 resolved 96701538 SNOMED-C T ULCER 10/19/2022 resolved 911376875 SNOMED-CT URINARY DIVERSTION 10/19/2022 resolved SNOMED-CT INTERNAL BLADDER 10/19/2022 resolved SN OMED-CT Allergies and Adverse Reactions Allergy Substance Reaction Severity Start Date Concern Status Code Code System SULFA (sulfonamide) Anaphylaxis (SNOMED-CT: 57297421) Active 21063967 SNOMED-CT Plan of Treatment MM SCREEN BILAT 02/17/2024 LAB DRAW 15MIN 12/03/2021 CT ABDOMEN/PELVIS W/ CONTRAST X-RAY 11/25/2021 X-RAY 11/19/2021 Encounters Encounter Diagnosis Start Date Code Code Sys tem Tubulo-interstitial nephriti s, not specified as acute or chronic 10/19/2022 SNOMED-CT Personal Care Team Section Performer Name Performer Role Active Date Inactive Nasir hinojosa
--- OUTSIDE RECORDS SUMMARY | 2024-03-06 16:16 | XMS_ITS ---
Author Name Unknown Address [address] [place] [address] [phone] Phone Organization Unknown Address [address] [place] [address] [phone] Phone Care Team Providers Care Solidworks Mechanical Designer Name Role Phone GREGORY Eli Attending Unavailable ROMULO Guaman Primary Unavailable Results BUN/CREATININE RATIO FOR RAD IOLOGY* - Collect Date/Time: 12/03/2021 10:10 [facility] ID: [id number] [address] [place] [address], 5661 LOINC: 3097-3 Test Value Unit Reference Range Code Code System Flag BUN 6 mg/dL L=6 H=25 3094-0 LOINC CREATININE 0.83 mg/dL L=0.51 H=0.95 2160-0 LOINC BUN/CREATININE RATIO 7.2 3097-3 LOINC AGE 56 years eGFR (non-Afr.Amer) 71 mL/min 49487-0 LOINC eGFR (Afr-Chilean) 86 mL/min 76604-[address] ABD + PELV W CONTRAST [...] D Friday, December 03, 2021 11:46:34 AM [id number] Electronically Reviewed and Signed By: CARMEN EDWARD MD 12/03/21 14:47 Copy for: GREGORY Eli via fax Copy for: ROMULO Guaman via fax Copy for: [facility] HEALTH INFORMATION MGMT Social History Type Status Start Date End Date Code Code Syst em Smoking History Never smoker (Never Smoked) 825529747 SNOMED CT Sex Female Medications Medication Start Date End Date Route Frequency Dose Code Code System Medication Instructions Home Meds Acetaminophen 325MG Oral Tablet 10/21/2022 Unknown ORAL NEEDED EVERY 4 HOURS 650 MILLIGRAMS 273631 RxNorm TAKE 650 MILLIGRAMS ORAL NEEDED EVERY 4 HOURS Atorvastatin Calcium 20MG Oral Tablet 10/21/2022 Unknown ORAL BEDTIME 20 MILLIGRAMS 841576 RxNorm TAKE 20 MILLIGRAMS ORAL BEDTIME Omeprazole 20 MG Oral Tablet Disintegrating, Delayed Release 10/21/2022 Unknown ORAL DAILY 20 MG 9397971 RxNorm TAKE 20 MG ORAL DAILY metFORMIN HCl 500MG Oral Tablet 10/21/2022 Unknown ORAL TWICE A DAY WITH FOOD 500 MILLIGRAMS 406129 RxNorm TAKE 500 MILLIGRAMS ORAL TWICE A DAY WITH FOOD Cephalexin 500MG Oral Tablet 10/21/2022 Unknown ORAL FOUR TIMES A DAY 1 TABLET 753976 RxNorm TAKE 1 TABLET ORAL FOUR TIMES [...] Date Status Code Code System PYELONEPHRITIS active 96771036 SNOME D-CT HISTORY OF TOTAL CYSTECTOMY active 44 5415871 SNOMED-CT TYPE 2 DIABETES active 37455996 SNOM ED-CT DIABETES 2 10/19/2022 resolved 91755087 SNOMED-C T ULCER 10/19/2022 resolved 820156129 SNOMED-CT URINARY DIVERSTION 10/19/2022 resolved SNOMED-CT INTERNAL BLADDER 10/19/2022 resolved SN OMED-CT Allergies and Adverse Reactions Allergy Substance Reaction Severity Start Date Concern Status Code Code System SULFA (sulfonamide) Anaphylaxis (SNOMED-CT: 32852012) Active 10609270 SNOMED-CT Plan of Treatment MM SCREEN BILAT 02/17/2024 LAB DRAW 15MIN 12/03/2021 CT ABDOMEN/PELVIS W/ CONTRAST X-RAY 11/25/2021 X-RAY 11/19/2021 Encounters Encounter Diagnosis Start Date Code Code Sys tem Retention of urine 12/03/2021 137811304 SNOMED-CT Personal Care Team Section Performer Name Performer Role Active Date Inactive Da te
--- OUTSIDE RECORDS SUMMARY | 2024-03-06 16:17 | XMS_ITS ---
Author Name Unknown Address [address] [place] [address] [phone] Phone Organization Unknown Address [address] [place] [address] [phone] Phone Care Team Providers Care Stock Preparer Name Role Phone GREGORY Eli Attending Unavailable ROMULO Guaman Primary Unavailable Results CULT URINE CULTURE* - Virgilio wu Date/Time: 03/16/2023 15:59 [facility] ID: [id number] [address] [place], [place], [phone] LOINC: 630-4 Test Value Unit Reference Range Code Code System Flag COLLECTION MODE: NOT STATED 14426-2 LOINC Social History Type Status Start Date End Date Code Code Syst em Smoking History Never smoker (Never Smoked) 809721565 SNOMED CT Sex Female Medications Medication Start Date End Date Route Frequency Dose Code Code System Medication Instructions Home Meds Acetaminophen 325MG Oral Tablet 10/21/2022 Unknown ORAL NEEDED EVERY 4 HOURS 650 MILLIGRAMS 607618 RxNorm TAKE 650 MILLIGRAMS ORAL NEEDED EVERY 4 HOURS Atorvastatin Calcium 20MG Oral Tablet 10/21/2022 Unknown ORAL BEDTIME 20 MILLIGRAMS 297855 RxNorm TAKE 20 MILLIGRAMS ORAL BEDTIME Omeprazole 20 MG Oral Tablet Disintegrating, Delayed Release 10/21/2022 Unknown ORAL DAILY 20 MG 2631476 RxNorm TAKE 20 MG ORAL DAILY metFORMIN HCl 500MG Oral Tablet 10/21/2022 Unknown ORAL TWICE A DAY WITH FOOD 500 MILLIGRAMS 490721 RxNorm TAKE 500 MILLIGRAMS ORAL TWICE A DAY WITH FOOD Cephalexin 500MG Oral Tablet 10/21/2022 Unknown ORAL FOUR TIMES A DAY 1 TABLET 004255 RxNorm TAKE 1 TABLET ORAL FOUR TIMES [...] Date Status Code Code System PYELONEPHRITIS active 03313339 SNOME D-CT HISTORY OF TOTAL CYSTECTOMY active 44 7357522 SNOMED-CT TYPE 2 DIABETES active 01943348 SNOM ED-CT DIABETES 2 10/19/2022 resolved 40973418 SNOMED-C T ULCER 10/19/2022 resolved 081745584 SNOMED-CT URINARY DIVERSTION 10/19/2022 resolved SNOMED-CT INTERNAL BLADDER 10/19/2022 resolved SN OMED-CT Allergies and Adverse Reactions Allergy Substance Reaction Severity Start Date Concern Status Code Code System SULFA (sulfonamide) Anaphylaxis (SNOMED-CT: 48335603) Active 10195842 SNOMED-CT Plan of Treatment MM SCREEN BILAT 02/17/2024 LAB DRAW 15MIN 12/03/2021 CT ABDOMEN/PELVIS W/ CONTRAST X-RAY 11/25/2021 X-RAY 11/19/2021 Encounters Encounter Diagnosis Start Date Code Code Sys tem Dysuria 03/16/2023 11134619 SNOMED-CT Personal Care Team Section Performer Name Performer Role Active Date Inactive Da micaela
--- OUTSIDE RECORDS SUMMARY | 2024-03-06 16:18 | XMS_ITS ---
Author Name Unknown Address [address] [place] [address] [phone] Phone Organization Unknown Address [address] [place] [address] [phone] Phone Care Team Providers Care Campaign Advisor Name Role Phone JERILYN Carey MD Attending Unavailable [facility] Primary Unavailable Social History Type Status Start Date End Date Code Code Syst em Smoking History Never smoker (Never Smoked) 591665953 SNOMED CT Sex Female Medications Medication Start Date End Date Route Frequency Dose Code Code System Medication Instructions Home Meds Acetaminophen 325MG Oral Tablet 10/21/2022 Unknown ORAL NEEDED EVERY 4 HOURS 650 MILLIGRAMS 552306 RxNorm TAKE 650 MILLIGRAMS ORAL NEEDED EVERY 4 HOURS Atorvastatin Calcium 20MG Oral Tablet 10/21/2022 Unknown ORAL BEDTIME 20 MILLIGRAMS 248452 RxNorm TAKE 20 MILLIGRAMS ORAL BEDTIME Omeprazole 20 MG Oral Tablet Disintegrating, Delayed Release 10/21/2022 Unknown ORAL DAILY 20 MG 4106433 RxNorm TAKE 20 MG ORAL DAILY metFORMIN HCl 500MG Oral Tablet 10/21/2022 Unknown ORAL TWICE A DAY WITH FOOD 500 MILLIGRAMS 667330 RxNorm TAKE 500 MILLIGRAMS ORAL TWICE A DAY WITH FOOD Cephalexin 500MG Oral Tablet 10/21/2022 Unknown ORAL FOUR TIMES A DAY 1 TABLET 603450 RxNorm TAKE 1 TABLET ORAL FOUR TIMES [...] Date Status Code Code System PYELONEPHRITIS active 38415780 SNOME D-CT HISTORY OF TOTAL CYSTECTOMY active 44 6700916 SNOMED-CT TYPE 2 DIABETES active 66501068 SNOM ED-CT DIABETES 2 10/19/2022 resolved 82095611 SNOMED-C T ULCER 10/19/2022 resolved 108153373 SNOMED-CT URINARY DIVERSTION 10/19/2022 resolved SNOMED-CT INTERNAL BLADDER 10/19/2022 resolved SN OMED-CT Allergies and Adverse Reactions Allergy Substance Reaction Severity Start Date Concern Status Code Code System SULFA (sulfonamide) Anaphylaxis (SNOMED-CT: 18885819) Active 47005472 SNOMED-CT Plan of Treatment MM SCREEN BILAT 02/17/2024 LAB DRAW 15MIN 12/03/2021 CT ABDOMEN/PELVIS W/ CONTRAST X-RAY 11/25/2021 X-RAY 11/19/2021 Encounters Encounter Diagnosis Start Date Code Code Sys tem Palpitations 04/01/2021 SNOMED-CT Personal Care Team Section Performer Name Performer Role Active Date Inactive Da te
--- OUTSIDE RECORDS SUMMARY | 2024-03-06 16:18 | XMS_ITS ---
Author Name Unknown Address [address] [place] [address] [phone] Phone Organization Unknown Address [address] [place] [address] [phone] Phone Care Team Providers Care Monomer Recovery Operator Name Role Phone SHIRLEY Han Attending Unavailable ROMULO Guaman Primary Unavailable Results *MM SCREENING DYLAN [id number] - Co mpleted: 02/17/2024 15:58 LOINC: [place], [place] [id number] [place] [address] LIVE TRUCK TECHNICIAN REPORT Patient Name: RONALD CAIN MRN: Sex: : Age: [id number] F 1965 [id number] Account: Accession: Admit: StayType: [id number] 02/17/2024 O Ordered: Order ID: Submitted: Ordering Provider: 02/17/2024 15:19 [id number] REBECCA SALES Completed: Technologist: Resulted: 02/17/2024 15:43 [facility] 02/17/2024 18:42 FINAL REPORT EXAM: MM SCREENING [...] em Smoking History Never smoker (Never Smoked) 476081283 SNOMED CT Sex Female Medications Medication Start Date End Date Route Frequency Dose Code Code System Medication Instructions Home Meds Acetaminophen 325MG Oral Tablet 10/21/2022 Unknown ORAL NEEDED EVERY 4 HOURS 650 MILLIGRAMS 030477 RxNorm TAKE 650 MILLIGRAMS ORAL NEEDED EVERY 4 HOURS Atorvastatin Calcium 20MG Oral Tablet 10/21/2022 Unknown ORAL BEDTIME 20 MILLIGRAMS 534757 RxNorm TAKE 20 MILLIGRAMS ORAL BEDTIME Omeprazole 20 MG Oral Tablet Disintegrating, Delayed Release 10/21/2022 Unknown ORAL DAILY 20 MG 9093734 RxNorm TAKE 20 MG ORAL DAILY metFORMIN HCl 500MG Oral Tablet 10/21/2022 Unknown ORAL TWICE A DAY WITH FOOD 500 MILLIGRAMS 475977 RxNorm TAKE 500 MILLIGRAMS ORAL TWICE A DAY WITH FOOD Cephalexin 500MG Oral Tablet 10/21/2022 Unknown ORAL FOUR TIMES A DAY 1 TABLET 323588 RxNorm TAKE 1 TABLET ORAL FOUR TIMES [...] Date Status Code Code System PYELONEPHRITIS active 49209916 SNOME D-CT HISTORY OF TOTAL CYSTECTOMY active 44 6156342 SNOMED-CT TYPE 2 DIABETES active 49643889 SNOM ED-CT DIABETES 2 10/19/2022 resolved 15865105 SNOMED-C T ULCER 10/19/2022 resolved 873790425 SNOMED-CT URINARY DIVERSTION 10/19/2022 resolved SNOMED-CT INTERNAL BLADDER 10/19/2022 resolved SN OMED-CT Allergies and Adverse Reactions Allergy Substance Reaction Severity Start Date Concern Status Code Code System SULFA (sulfonamide) Anaphylaxis (SNOMED-CT: 52671362) Active 86045788 SNOMED-CT Plan of Treatment MM SCREEN BILAT 02/17/2024 LAB DRAW 15MIN 12/03/2021 CT ABDOMEN/PELVIS W/ CONTRAST X-RAY 11/25/2021 X-RAY 11/19/2021 Encounters Encounter Diagnosis Start Date Code Code Sys tem Screening mammography 02/17/2024 39563588 SNOMED -CT Personal Care Team Section Performer Name Performer Role Active Date Inactive Da te
[2024-03-06 21:51] LABS: Abs Immature Grans 0.01 10^3/uL (0.0-0.06); Absolute Basophil Count 0.11 10^3/uL (0.0-0.2); Absolute Eosinophil Count 0.14 10^3/uL (0.0-0.7); Absolute Lymphocyte Count 2.69 10^3/uL (1.2-3.4); Absolute Monocyte Count 0.54 10^3/uL (0.1-0.8); Absolute Neutrophil Count 4.41 10^3/uL (1.2-6.7); Basophils % 1.4 %; Eosinophils % 1.8 %; HGB 13.1 g/dL (11.2-15.7); Immature Grans % 0.1 %; Lymphocytes % 34.1 %; MCH 27.2 pg (27.0-33.0); MCV 85 fL (80-95); MPV 9.4 fL (8.0-11.0); Monocytes % 6.8 %; Neutrophils % 55.8 %; Platelet Count 452 10^3/uL (130-400); RBC 4.81 10^6/uL (3.93-5.22); RDW 13.3 % (11.7-14.6); RDW-SD 41.7 fL
[2024-03-06 22:06] LABS: Lipase 40 U/L (16-77)
[2024-03-06 22:08] LABS: ALT 25 U/L (14-59); AST 18 U/L (15-37); Albumin 4.1 g/dL (3.4-5.0); Alkaline Phosphatase 88 U/L (46-116); Anion Gap 9.1 mmol/L (3-11); BUN 7 mg/dL (7-18); Bilirubin, Total 0.37 mg/dL (0.2-1.0); CO2 27.9 mmol/L (21.0-32.0); CREATININE 0.8 mg/dL (0.55-1.02); Calcium 9.5 mg/dL (8.5-10.1); Chloride 101 mmol/L (98-107); Estimated GFR 84.82 (mL/min/1.73m2); Glucose 115 mg/dL (74-106); Potassium 4.5 mmol/L (3.5-5.1); Sodium 138 mmol/L (136-145); Total Protein 8.1 g/dL (6.4-8.2)
== END 2024-03-06 16:14 | disposition home or self-care (01) ==
LOC: NCHCN 16:13
PROVIDERS: PCP Family Medicine; Visit Provider Nurse Practitioner Family
DX: R10.12 Left upper quadrant pain (principal)
CPT/HCPCS: 80053; 83690; 85025; 87086

== ENCOUNTER 2025-02-28 08:36 | Outpatient (REF) | payer BC, SELFPAY ==
[2025-02-28 14:41] LABS: HCT 40.5 % (36.0-46.0); MCH 27.1 pg (27.0-33.0); MCHC 32.1 % (32.0-36.0); MCV 84 fL (80-95); MPV 9.6 fL (8.0-11.0); Platelet Count 383 10^3/uL (130-400); RDW 13.4 % (11.7-14.6); RDW-SD 41.7 fL; WBC 6.13 10^3/uL (4.4-10.8)
[2025-02-28 15:12] LABS: Hemoglobin A1C 6.4 % (<5.7)
[2025-02-28 15:42] LABS: ALT 29 U/L (14-59); AST 19 U/L (15-37); Albumin 4.3 g/dL (3.4-5.0); Alkaline Phosphatase 76 U/L (46-116); Anion Gap 11.4 mmol/L (3-11); BUN 18 mg/dL (7-18); Bilirubin, Total 0.5 mg/dL (0.2-1.0); CO2 27.6 mmol/L (21.0-32.0); CREATININE 0.9 mg/dL (0.55-1.02); Calcium 9.7 mg/dL (8.5-10.1); Calculated LDL 99 mg/dL (<100); Chloride 104 mmol/L (98-107); Cholesterol 185 mg/dL (<200); Estimated GFR 73.19 (mL/min/1.73m2); Glucose 129 mg/dL (74-106); HDL Cholesterol 71 mg/dL (>or=50); Magnesium 1.6 mg/dL (1.8-2.4); Potassium 4.9 mmol/L (3.5-5.1); Sodium 143 mmol/L (136-145); Total Protein 7.7 g/dL (6.4-8.2); Triglyceride 78 mg/dL (<150); Vitamin B12 398 pg/mL (193-986)
== END 2025-02-28 08:37 | disposition home or self-care (01) ==
LOC: NCHCN 08:36
PROVIDERS: PCP Family Medicine; Visit Provider Nurse Practitioner Family
DX: D64.9 Anemia, unspecified (principal); E78.5 Hyperlipidemia, unspecified; R03.0 Elevated blood-pressure reading, without diagnosis of hypertension; E11.9 Type 2 diabetes mellitus without complications
CPT/HCPCS: 80053; 80061; 85027; 82607; 83036; 83735

== ENCOUNTER 2025-03-06 18:35 | Outpatient (REF) | payer BC, SELFPAY ==
[2025-03-06 20:06] LABS: COMMENT (LAB VIEW ONLY) 92.48 mg/dL; Microalb ug/mg Crea 40.2 ug/mg Cr
== END 2025-03-06 18:36 | disposition home or self-care (01) ==
LOC: NCHCN 18:35
PROVIDERS: PCP Family Medicine; Visit Provider Nurse Practitioner Family
DX: E11.9 Type 2 diabetes mellitus without complications (principal)
CPT/HCPCS: 82043; 82570